=== PATIENT | female | born 1985 | race Caucasian/White ===

== ENCOUNTER 2018-03-12 08:24 | Emergency (ER) | payer OTHER ==
[~2018-03-12] VITALS: Ht 154.9 cm; Wt 59.0 kg
[2018-03-12] MEDS ORDERED: BACTRIM DS TAB1 EACH PO (08:46)
[2018-03-12] MEDS ORDERED: NORCO 5-325 TA1 EACH PO (08:46)
[2018-03-12] MEDS ORDERED: KEFLEX500 M1 PO (08:46)
[2018-03-12 09:00] VITALS: BP 144/86
== END 2018-03-12 09:10 | disposition home or self-care (01) ==
LOC: M.ERS 08:24
DX: L03.311 Cellulitis of abdominal wall (principal); M41.9 Scoliosis, unspecified

== ENCOUNTER 2019-10-06 23:37 | Emergency (ER) | payer OTHER ==
[~2019-10-06] VITALS: Ht 152.4 cm; Wt 56.7 kg
[~2019-10-06 23:37] MED LIST: BACTRIM DS TAB1 EACH PO; KEFLEX500 M1 PO; NORCO 5-325 TA1 EACH PO
[2019-10-07 00:10] VITALS: BP 138/95
== END 2019-10-07 00:21 | disposition home or self-care (01) ==
LOC: M.ERS 23:37
DX: S61.217A Laceration without foreign body of left little finger without damage to nail, initial encounter (principal); W26.8XXA Contact with other sharp object(s), not elsewhere classified, initial encounter; Y93.89 Activity, other specified; Y92.89 Other specified places as the place of occurrence of the external cause; Y99.8 Other external cause status

== ENCOUNTER 2020-07-07 01:33 | Emergency (ER) | payer OTHER ==
[~2020-07-07] VITALS: Ht 152.4 cm; Wt 54.4 kg
[2020-07-07 02:26] LABS: URINE BILIRUBIN NEGATIVE (Negative); URINE BLOOD NEGATIVE (Negative); URINE CLARITY CLEAR; URINE COLOR YELLOW; URINE GLUCOSE-RANDOM NEGATIVE (Negative); URINE KETONES NEGATIVE (Negative); URINE LEUKOCYTES-REFLEX NEGATIVE (Negative); URINE NITRITE-REFLEX NEGATIVE (Negative); URINE PROTEIN NEGATIVE (Negative); URINE SPECIFIC GRAVITY <= 1.005 (1.005-1.030); URINE UROBILINOGEN 0.2 E.U./dl (0.2-1.0)
[2020-07-07 02:34] LABS: AMP/METHAMP Negative (Negative); BARBITURATES Negative (Negative); BENZODIAZEPINES Negative (Negative); COCAINE Negative (Negative); METHADONE Negative (Negative); OPIATES Negative (Negative); PCP Negative (Negative); THC Negative (Negative)
[2020-07-07 02:35] LABS: ABSOLUTE LYMPHOCYTES 1.9 thou/uL (0.8-5.3); ABSOLUTE MONOCYTES 0.5 thou/uL (0.0-1.2); BASOPHILS 0.3 %; EOSINOPHILS 0.4 %; HEMATOCRIT 36.7 % (37.0-47.0); HEMOGLOBIN 12.4 gm/dL (12.0-15.0); LYMPHOCYTES 25.7 %; MCH 30.5 pg (26.0-34.0); MCHC 33.9 g/dL (28.0-37.0); MCV 89.9 fL (80.0-100.0); MONOCYTES 6.5 %; NUCLEATED RBCS 0 /100WBC; PLATELET COUNT* 297 thou/uL (150-400); POLYS 67.1 %; RBC 4.08 mil/uL (4.20-5.00); WBC 7.4 thou/uL (4.0-11.0)
[2020-07-07 02:48] LABS: CALCIUM 8.7 mg/dL (8.5-10.1); CREATININE 0.5 mg/dL (0.6-1.3); POTASSIUM 3.7 mmol/L (3.5-5.1); TOTAL BILIRUBIN 0.5 mg/dL (<0.1-1.0); TOTAL PROTEIN 6.8 g/dL (6.4-8.2)
[2020-07-07] MEDS ORDERED: TORADOL 10 MG T10 MG PO (03:25)
[2020-07-07] MEDS ORDERED: ACETAMINOPHEN-1 EAC2 PO (03:25)
[2020-07-07 03:36] VITALS: BP 135/68
== END 2020-07-07 03:36 | disposition home or self-care (01) ==
LOC: M.ERS 01:33
PROVIDERS: Personal Emergency Response Attendant
DX: M54.5 Low back pain (principal); M54.6 Pain in thoracic spine; M54.2 Cervicalgia; M41.9 Scoliosis, unspecified; F17.210 Nicotine dependence, cigarettes, uncomplicated; Z90.49 Acquired absence of other specified parts of digestive tract; Z98.890 Other specified postprocedural states

== ENCOUNTER 2020-12-19 22:47 | Emergency (ER) | payer OTHER ==
[~2020-12-19] VITALS: Ht 152.4 cm; Wt 55.8 kg
[~2020-12-19 22:47] MED LIST changes: +ACETAMINOPHEN-1 EAC2 PO; +TORADOL 10 MG T10 MG PO
[2020-12-20] MEDS ORDERED: KEFLEX250 MG PO (02:47)
[2020-12-20] MEDS ORDERED: HYDROCODON-ACE1 EAC8 PO (02:47)
[2020-12-20 03:08] VITALS: BP 148/79
== END 2020-12-20 03:09 | disposition home or self-care (01) ==
LOC: M.ERS 22:47
DX: S92.492A Other fracture of left great toe, initial encounter for closed fracture (principal); F17.210 Nicotine dependence, cigarettes, uncomplicated; M41.9 Scoliosis, unspecified; Z90.49 Acquired absence of other specified parts of digestive tract; Z98.890 Other specified postprocedural states; W22.8XXA Striking against or struck by other objects, initial encounter; Y93.89 Activity, other specified; Y92.89 Other specified places as the place of occurrence of the external cause; Y99.8 Other external cause status

== ENCOUNTER → 2021-02-16 | Outpatient (CLI) | payer OTHER ==
[~2021-02-16] MED LIST changes: +HYDROCODON-ACE1 EAC8 PO; +KEFLEX250 MG PO
--- NOTE | 2021-02-16 13:34 | 2DMMODE ---
[place] [address] 2 D/M-MODE ECHOCARDIOGRAM Name: JGTONA M Room: [facility]#: [id number] Admission: 02/16/21 Attend Phys: Marco Kang, Discharge: Date of : 83 Date of Service: 02/16/21 1334 Report #: [id number] THIS REPORT FOR: cc: Melinda Oliver Linda J. DO Blick,Wei Sanchez MD [facility] ~ ADDENDUM APPROVED REPORT Study performed: 02/16/2021 10:32:07 EXAM: Comprehensive 2D, Doppler, and color-flow Echocardiogram Patient Location: Out-Patient BSA: 1.50 HR: 75 bpm BP: 142/92 mmHg Other Information Study Quality: Excellent Indications Hypertension/HDD 2D Dimensions IVSd: 10.96 (7-11mm) LVOT Diam: 20.36 (18-24mm) LVDd: 38.91 mm PWd: 8.60 (7-11mm) Ascending Ao: 28.40 (22-36mm) LVDs: 29.07 (25-40mm) Aortic Root: 25.31 mm Volumes Left Atrial Volume (Systole) LA ESV Index: 14.60 mL/m2 Aortic Valve AoV Peak Ernesto.: 1.28 m/s AO Peak Gr.: 6.59 mmHg LVOT Max P.28 mmHg AO Mean Gr.: 3.40 mmHg LVOT Mean P.15 mmHg LVOT Max V: 1.15 m/s AO V2 VTI: 22.90 cm LVOT Mean V: 0.65 m/s JADON (VTI): 3.32 cm2 LVOT V1 VTI: 23.31 cm Mitral Valve E/A Ratio: 1.02 [place] [address] 2 D/M-MODE ECHOCARDIOGRAM Name: TONA GREGORIO Room: [facility]#: [id number] Admission: 02/16/21 Attend Phys: Marco Kang, Discharge: Date of : 83 Date of Service: 02/16/21 1334 Report #: [id number] MV Decel. Time: 207.19 ms MV E Max Ernesto.: 0.68 m/s MV PHT: 60.09 ms MVA (PHT): 3.66 cm2 TDI E/Lateral E': 5.23 E/Medial E': 8.50 Medial E' Ernesto.: 0.08 m/s Lateral E' Ernesto.: 0.13 m/s Pulmonary Valve PV Peak Ernesto.: 0.87 m/s PV Peak Gr.: 3.01 mmHg Tricuspid Valve RAP Estimate: 5.00 mmHg TR Peak Gr.: 15.39 mmHg RVSP: 20.39 mmHg PA Pressure: 20.39 mmHg Left Ventricle The left ventricle is normal size. There is normal LV segmental wall motion. There is normal left ventricular wall thickness. Left ventricular systolic function is normal. The left ventricular ejection fraction is within the normal range. LVEF is 55-60%. The left ventricular diastolic function is normal. Right Ventricle The right ventricle is normal size. The right ventricular systolic function is normal. Atria The left atrium size is normal. The right atrium size is normal. Aortic Valve The aortic valve is normal in structure. Trace aortic regurgitation. There is no aortic valvular stenosis. Mitral Valve The mitral valve is normal in structure. Trace mitral regurgitation. No evidence of mitral valve stenosis. Tricuspid Valve The tricuspid valve is normal in structure. There is trace tricuspid valve regurgitation noted[place] [address] 2 D/M-MODE ECHOCARDIOGRAM Name: GJTONA M Room: [facility]#: [id number] Admission: 02/16/21 Attend Phys: Marco Kang, Discharge: Date of : 83 Date of Service: 02/16/21 1334 Report #: [id number] The pulmonary valve is normal in structure. Trace pulmonic regurgitation. Great Vessels The aortic root is normal in size. IVC is normal in size and collapses >50% with inspiration. Pericardium There is no pericardial effusion. <Conclusion> LVEF is 55-60%. Trace mitral regurgitation. Trace aortic regurgitation. <ELECTRONICALLY SIGNED> By: Wei Heredia MD, FACC 02/16/21 1334 1334 1334 Wei Heredia MD, FAC /INF
== END ==
LOC: M.CRD 10:41
PROVIDERS: ATTEND Internal Medicine Cardiovascular Disease
DX: I10 Essential (primary) hypertension (principal); R00.0 Tachycardia, unspecified

== ENCOUNTER 2021-08-07 13:20 | Emergency (ER) | payer OTHER ==
[~2021-08-07] VITALS: Ht 152.4 cm; Wt 54.4 kg
[2021-08-07] MEDS ORDERED: KAPSPARGO SPRIN50 MG PO (13:29)
[2021-08-07 14:10] LABS: ABSOLUTE BASOPHILS 0.1 thou/uL (0.0-0.2); ABSOLUTE LYMPHOCYTES 1.7 thou/uL (0.8-5.3); ABSOLUTE MONOCYTES 0.6 thou/uL (0.0-1.2); ABSOLUTE NEUTROPHILS 4.9 thou/uL (1.6-8.1); BASOPHILS 0.8 %; EOSINOPHILS 0.3 %; HEMATOCRIT 42.6 % (37.0-47.0); HEMOGLOBIN 14.3 gm/dL (12.0-15.0); LYMPHOCYTES 23.3 %; MCH 31.3 pg (26.0-34.0); MCHC 33.5 g/dL (28.0-37.0); MCV 93.6 fL (80.0-100.0); MONOCYTES 8.1 %; MPV 7.6 fl. (7.2-11.1); NUCLEATED RBCS 0 /100WBC; PLATELET COUNT* 327 thou/uL (150-400); POLYS 67.5 %; RBC 4.55 mil/uL (4.20-5.00); RDW-CV 13.8 % (10.5-14.5); WBC 7.2 thou/uL (4.0-11.0)
[2021-08-07 14:17] LABS: CALCIUM 9.3 mg/dL (8.5-10.1); CREATININE 0.6 mg/dL (0.6-1.3); POTASSIUM 4.2 mmol/L (3.5-5.1)
[2021-08-07 14:27] LABS: ALBUMIN 4.2 g/dL (3.4-5.0); MAGNESIUM 1.8 mg/dL (1.8-2.4); TOTAL BILIRUBIN 0.9 mg/dL (<0.1-1.0); TOTAL PROTEIN 7.6 g/dL (6.4-8.2)
[2021-08-07] MEDS ORDERED: METOPROLOL SUC100 MG PO (15:41)
[2021-08-07] MEDS ORDERED: FLEXERIL PO (15:42)
[2021-08-07 16:22] VITALS: BP 138/79
--- NOTE | 2021-08-08 09:52 | EKG ---
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: [place] : 1985 Requested By: Nathaniel Lee Order Number: [id number] MD: Wei Heredia Measurements Intervals [place] Rate: 87 P: 53 IA: 144 QRS: 36 QRSD: 100 T: 43 QT: 353 QTc: 425 Interpretive Statements Sinus rhythm Probable left atrial enlargement RSR' in V1 or V2, probably normal variant No previous ECG available for comparison Electronically Signed On 08-08-2021 9:52:16 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
== END 2021-08-07 16:22 | disposition home or self-care (01) ==
LOC: M.ERS 13:20
PROVIDERS: Emergency Medicine Emergency Medical Services
DX: R07.89 Other chest pain (principal); F17.210 Nicotine dependence, cigarettes, uncomplicated; Z90.49 Acquired absence of other specified parts of digestive tract; Z79.899 Other long term (current) drug therapy